=== PATIENT | female | born 1935 | race Caucasian/White ===

== ENCOUNTER → 2016-11-17 | Outpatient (CLI) | payer OTHER | LOC: FIMAGING 11:00 | PROVIDERS: ATTEND Internal Medicine | DX: Z12.31 Encounter for screening mammogram for malignant neoplasm of breast (principal); Z85.3 Personal history of malignant neoplasm of breast | CPT/HCPCS: G0202-52 ==

== ENCOUNTER → 2016-11-26 | Outpatient (CLI) | payer OTHER | LOC: FIMAGING 12:02 | PROVIDERS: ATTEND Internal Medicine | DX: R92.8 Other abnormal and inconclusive findings on diagnostic imaging of breast (principal) | CPT/HCPCS: 76641; G0206 ==

== ENCOUNTER → 2017-02-09 | Outpatient (CLI) | payer OTHER | LOC: FIMAGING 15:21 | PROVIDERS: ATTEND Internal Medicine | DX: J40 Bronchitis, not specified as acute or chronic (principal) ==

== ENCOUNTER → 2017-05-27 | Outpatient (CLI) | payer OTHER | LOC: FIMAGING 11:11 | PROVIDERS: ATTEND Internal Medicine | DX: Z03.89 Encounter for observation for other suspected diseases and conditions ruled out (principal); Z90.11 Acquired absence of right breast and nipple ==

== ENCOUNTER → 2018-01-21 | Outpatient (CLI) | payer OTHER ==
[~2018-01-21] MED LIST: GADOBUTROL 10 ML VIAL IVP ONE
== END ==
LOC: FIMAGING 15:00
PROVIDERS: ATTEND Internal Medicine
DX: R90.89 Other abnormal findings on diagnostic imaging of central nervous system (principal); Z85.3 Personal history of malignant neoplasm of breast
CPT/HCPCS: 70553; A9585

== ENCOUNTER → 2018-04-22 | Outpatient (CLI) | payer OTHER | LOC: FIMAGING 10:38 | PROVIDERS: ATTEND Internal Medicine | DX: M25.551 Pain in right hip (principal); M25.552 Pain in left hip; M54.5 Low back pain ==

== ENCOUNTER 2018-05-16 13:23 | Emergency (ER) | payer OTHER ==
--- NOTE | 2018-05-16 13:24 | EDPHY ---
H & P Time Seen by Provider: 05/16/18 13:25 Constitutional: Initial Vital Signs Temperature (C) 36.5 C 05/16/18 13:23 Heart Rate 80 05/16/18 13:23 Respiratory Rate 16 05/16/18 13:23 Blood Pressure 131/81 H 05/16/18 13:23 O2 Sat (%) 99 05/16/18 13:23 O2 Delivery Mode Room Air O2 (L/minute) 2 Allergies/Adverse Reactions: hydrocodone [Hydrocodone] Allergy (Unknown, Verified 05/16/18 13:39) Unknown clarithromycin [From Biaxin] Allergy (Verified 05/16/18 13:39) Sulfa (Sulfonamide Antibiotics) Allergy (Verified 05/16/18 13:39) Home Medications: Medication Instructions Recorded Aspirin 05/16/18 Ativan 05/16/18 Dexamethasone [Decadron 4 MG (*)] 4 mg PO DAILY #4 tab 05/16/18 Synthroid 05/16/18 Medical Decision Making - Diagnostics Imaging Results: Imaging Impressions Lumbar Spine MRI 05/16/18 14:14 Impression: 1. Prominent inferior endplate edema at L4, slightly greater than expected for degenerative change. Underlying nondisplaced compression fracture is difficult to exclude. 2. L4-L5: Severe left neural foraminal stenosis with possible compression of the exiting left L4 nerve root, with mild spinal canal narrowing and mild right neural foraminal stenosis. 3. L5-S1: Severe left neural foraminal stenosis and moderate right neural foraminal stenosis without significant spinal canal narrowing. 4. L2-L3: Moderate to severe right neural foraminal stenosis with mild spinal canal narrowing and mild left neural foraminal stenosis. 5. Please see above findings at specific disk levels. Findings discussed with Dr. Dillon Walter covering for Dr. Keith Johnson on May 16, 2018 at 1612 hours. ED Course/Re-evaluation: CHIEF COMPLAINT: Lower back pain HISTORY OF PRESENT ILLNESS: The patient is an 82 y/o female with a history of a a cortisone injection into the left hip 4 days ago, complaining of lower back pain. She has had left hip pain radiating into the front of her thigh off and on for several years. 4 days ago she had an injection into the left hip, though x-rays were not indicative of arthritis. This morning she began experiencing lower back pain which radiates into her thighs bilaterally. The pain is on both sides of her waist and is usually achy in quality but becomes sharp with movement. This morning, the pain prevented her from being able to walk upstairs. She has associated fatigue and headache. She denies changes in bowels and urination or any other associated symptoms. REVIEW OF SYSTEMS: A comprehensive 10 system review of systems is otherwise negative aside from elements mentioned in the history of present illness and medical decision making. PHYSICAL EXAM: HR, BP, O2 Sat, RR. Temp noted General Appearance: Alert, well hydrated, appropriate, and non-toxic appearing. Head: Atraumatic without scalp tenderness or obvious injury Eyes: Pupils equal, round, reactive to light and accommodation, EOMI, no trauma , no injection. Neck: Supple, nontender, no lymphadenopathy. Respiratory: No retractions, no distress, no wheezes, and no accessory muscle use. Lungs are clear to auscultation bilaterally. Cardiovascular: Regular rate and rhythm, no murmurs, rubs, or gallops. Good capillary refill all extremities. Gastrointestinal: Abdomen is soft, nontender, non-distended, no masses, no rebound, no guarding, no peritoneal signs. Musculoskeletal: Normal active ROM of all extremities, atraumatic. Neurological: Alert, appropriate, and interactive. Bilateral radiculopathy with left anterior tibialis giveaway. Skin: No rashes, good turgor, no nodules on palpation. Past medical history: Left hip injection Past surgical history: Denies Family history: Non-contributory Social history: Lives in [place], , retired, daughter and granddaughter at bedside DIAGNOSTICS/PROCEDURES/CRITICAL CARE TIME: DIFFERENTIAL DIAGNOSIS: The differential diagnosis for this patient's back pain included but was not limited to bulging disc, spinal stenosis, cauda equina syndrome, and soft tissue injury. MEDICAL DECISION MAKING: The patient presents with lower back pain, onset this morning. She has bilateral radiculopathy and anterior tibialis giveaway. Plan for spinal MRI. (Keith Johnson) MRI results called to me by Dr. Moore. This shows extensive degenerative disc disease. Additionally at left-sided L4 through S1 severe Neuramen Stenosis. As well as right-sided L2-L3. Additionally at L4 no no significant compression fracture or height loss and no evidence of diskitis however could be a small fracture. Please see full dictation for details. 1709: I spoke with Neurosurgery Dr. Wood Menon. Discussed case in detail an MRI results. Does not recommend back brace less she continues have bad pain. Additionally follow up with primary care doctor. Will give a Decadron prescription. Return precautions discussed. Additionally recommend following up with patient's primary care doctor Follow up with Neurosurgery and primary care doctor. Patient is comfortable with ambulatory around the emergency room at 5:11 p.m.. Ambulated well. Pain well controlled. No signs of cauda equina on exam MRI discussed in detail with the patient and family at bedside. I did offer the patient limited supply of narcotic pain medicine however she is decline. Pain-free at this time much improved after IV Dilaudid earlier in the ER. (Dillon Walter) - Data Points Medications Given: Discontinued Medications Hydromorphone HCl (Dilaudid) 0.5 mg IVP EDNOW ONE Stop: 05/16/18 13:51 Last Admin: 05/16/18 14:07 Dose: 0.5 mg Ketorolac Tromethamine (Toradol) 30 mg IVP EDNOW ONE Stop: 05/16/18 13:51 Last Admin: 05/16/18 14:06 Dose: 30 mg Ondansetron HCl (Zofran) 4 mg IVP EDNOW ONE Stop: 05/16/18 13:51 Last Admin: 05/16/18 14:05 Dose: 4 mg Departure - Departure Disposition: Home, Routine, Self-Care Clinical Impression: Back pain Condition: Good Instructions: Back Pain (ED) Additional Instructions: 1. Follow up with her primary care doctor 2. Return emergency room if you have worsening pain 3. Neurosurgery referral as needed 4. Decadron. 5. Return if worse. Referrals: Patient,NotPresent [Unknown] - As per Instructions Rajat Menon MD [Medical Doctor] - As per Instructions Prescriptions: Dexamethasone [Decadron 4 MG (*)] 4 mg PO DAILY #4 tab Report Scribed for: Keith Johnson Report Scribed by: Mervat Nichols Date of Report: 05/16/18 Time of Report: 13:57
[2018-05-16] MEDS ORDERED: HYDROmorphONE/DILAUDID 2 MG/ML INJ IVP ONE (13:50)
[2018-05-16] MEDS ORDERED: KETOROLAC 30 MG/1 ML SDV IVP ONE (13:50)
[2018-05-16] MEDS ORDERED: ONDANSETRON 4 MG/2 ML VIAL IVP ONE (13:50)
[2018-05-16 17:51] VITALS: BP 132/78
== END 2018-05-16 17:51 | disposition home or self-care (01) ==
LOC: EDUNIT#
DX: M54.5 Low back pain (principal)
CPT/HCPCS: 72148; 96374; 96375; 99285; J1170; J1885; J2405

== ENCOUNTER 2018-05-20 22:25 | Inpatient (IN) | payer OTHER ==
--- NOTE | 2018-05-20 22:47 | EDPHY ---
H & P Time Seen by Provider: 05/20/18 22:45 HPI/ROS: Chief Complaint: Back pain, confusion HPI: 82-year-old woman presenting with worsening back pain. She was seen in the emergency department 4 days ago with severe left lower back pain. She had an MRI at that time which showed L4 to S once left-sided stenosis and a possible nondisplaced fracture. She was sent home on nonnarcotic analgesia. Her called EMS tonight because she was complaining of worsening pain and was not wanting to get up from the floor. She did not fall. She had slid herself down a perform exercises. Her granddaughter also notice that she is increasingly slowed at answer and not seem to be acting herself today. She is normally awake and alert. Patient's states that she tends to become withdrawn when she is in pain. EMS did give her fentanyl. She is also complaining of having difficulty in the urge to urinate. No history of urinary retention in the past. ROS: 10 systems were reviewed and were negative except those elements noted in the HPI. Social History: No smoking, no alcohol, no recreational drug use Family History: non-contributory Physical Exam: Gen: Awake, Alert, No Distress HEENT: Nose: no rhinorrhea Eyes: PERRLA, EOMI Mouth: Moist mucosa Neck: Supple, no JVD Chest: nontender, lungs clear to auscultation Heart: S1, S2 normal, no murmur Abd: Soft, non-tender, no guarding Back: no CVA tenderness, no midline tenderness Ext: no edema, non-tender Skin: no rash Neuro: CN II-XII intact, Sensation grossly intact, Strength 5/5 in bilateral upper and lower extremities, she has normal dorsal and plantar flexion bilaterally. Sensations intact in all dermatomes. 2+ deep tendon reflexes bilateral patellar tendons. - Personal History Tetanus Vaccine Date: 2010 - Medical/Surgical History Hx Asthma: No Hx Chronic Respiratory Disease: No Hx Diabetes: Yes Hx Cardiac Disease: No Hx Renal Disease: No Hx Cirrhosis: No Hx Alcoholism: No Hx HIV/AIDS: No Hx Splenectomy or Spleen Trauma: No Other PMH: HRT, hypothyroid, anxiety - Social History Smoking Status: Former smoker Constitutional: Initial Vital Signs Temperature (C) 38.2 C 05/20/18 22:41 Heart Rate 98 05/20/18 22:41 Respiratory Rate 18 05/20/18 22:41 Blood Pressure 151/67 H 05/20/18 22:41 O2 Sat (%) 92 05/20/18 22:41 O2 Delivery Mode Room Air Allergies/Adverse Reactions: hydrocodone [Hydrocodone] Allergy (Unknown, Verified 05/16/18 13:39) Unknown clarithromycin [From Biaxin] Allergy (Verified 05/16/18 13:39) Sulfa (Sulfonamide Antibiotics) Allergy (Verified 05/16/18 13:39) Home Medications: Medication Instructions Recorded Acetaminophen [Tylenol 8 Hour] 650 mg PO 05/21/18 Aspirin EC [Aspirin EC 81 mg (*)] 05/21/18 Dexamethasone [Dexamethasone] 4 mg PO DAILY 05/21/18 Ibuprofen 200 mg PO 05/21/18 Isomethept/Dichlphn/Acetaminop 2 cap PO PRN PRN MDD 4 05/21/18 [Ihtpqwttas-Rbwnjkzojq-Spxtidww] LORazepam [Lorazepam] 0.5 mg PO PRN PRN MDD 1MG 05/21/18 Levothyroxine Sodium 50 mcg PO DAILY 05/21/18 [Levothyroxine Sodium] Melatonin [Melatonin 3 MG (*)] 05/21/18 Montelukast Sodium [Singulair 10 10 mg PO HS 05/21/18 mg (*)] Naproxen Sodium [Aleve 220 MG (*)] 05/21/18 Nortriptyline HCl 40 - 50 mg PO HS 05/21/18 Medical Decision Making - Diagnostics Imaging Results: Imaging Impressions Chest X-Ray 05/20/18 22:40 Impression: No acute abnormality, or significant interval change since previous exams. ED Course/Re-evaluation: Patient mildly altered. She is oriented x3 but is slow to respond. This could be secondary to medications by EMS. She is also febrile to 38.2. Will perform infectious workup re-evaluate. She is neurologically intact. No findings consistent with cauda equina. 82-year-old with back pain, fever. She does have a leukocytosis of 22, however she is on Decadron for her back pain and lumbar stenosis. She has not have any source of infection at this time including a normal urinalysis, negative chest x -ray and negative influenza. She does have some hyponatremia and is clinically dehydrated. I have given her IV fluids here. She has continued to complain of lumbar pain. Plan will be to admit for continued hydration, analgesia and to follow her temperature to rule out focal source of infection. I have paged the hospitalist. - Data Points Laboratory Results: Laboratory Results 05/20/18 22:45 05/20/18 22:45 05/20/18 05/20/18 05/20/18 23:15 23:15 22:45 WBC RBC Hgb Hct MCV MCH MCHC RDW Plt Count MPV Neut % (Auto) Lymph % (Auto) [place] % (Auto) Eos % (Auto) Baso % (Auto) Nucleat RBC Rel Count Absolute Neuts (auto) Absolute Lymphs (auto) Absolute Monos (auto) Absolute Eos (auto) Absolute Basos (auto) Absolute Nucleated RBC Immature Gran % Seg Neutrophils % Band Neutrophils % Lymphocytes % Monocytes % Eosinophils % Basophils % Metamyelocytes % Myelocytes % Promyelocytes % Blast Cells % Immature Gran # Absolute Seg Neuts Absolute Band Neuts Absolute Lymphocytes Absolute Monocytes Absolute Eosinophils Absolute Basophils Absolute Metamyelocyte Absolute Myelocytes Absolute Promyelocytes Absolute Plasma Cells Nucleated RBCs Absolute Blast Cells Plasma Cells % Platelet Estimate Sodium Potassium Chloride Carbon Dioxide Anion Gap BUN Creatinine Estimated GFR Glucose Serum Osmolality 263 mosmo/kg L mosmo/kg (280-297) Calcium TSH 2.760 uIU/mL uIU/mL (0.465-4.680) Urine Color YELLOW Urine Appearance CLEAR Urine pH 5.0 (5.0-7.5) Ur Specific [place] 1.018 (1.002-1.030) Urine Protein NEGATIVE (NEGATIVE) Urine Ketones TRACE H (NEGATIVE) Urine Blood 1+ H (NEGATIVE) Urine Nitrate NEGATIVE (NEGATIVE) Urine Bilirubin NEGATIVE (NEGATIVE) Urine Urobilinogen NEGATIVE EU EU (0.2-1.0) Ur Leukocyte Esterase NEGATIVE (NEGATIVE) Urine RBC 5-10 /hpf H /hpf (0-3) Urine WBC 3-5 /hpf H /hpf (0-3) Ur Epithelial Cells NONE SEEN /lpf /lpf (NONE-1+) Hyaline Casts 1-5 /lpf /lpf (0-1) Urine Mucus TRACE /lpf /lpf (NONE-1+) Ur Random Sodium 114 mEq/L H mEq/L (30-90) Urine Glucose NEGATIVE (NEGATIVE) Nasal Influenza A PCR Nasal Influenza B PCR 0105/20/18 05/20/18 22:45 22:45 22:45 WBC 21.91 10^3/uL H 10^3/uL (3.80-9.50) RBC 3.93 10^6/uL L 10^6/uL (4.18-5.33) Hgb 12.7 g/dL g/dL (12.6-16.3) Hct 35.9 % L % (38.0-47.0) MCV 91.3 fL fL (81.5-99.8) MCH 32.3 pg pg (27.9-34.1) MCHC 35.4 g/dL g/dL (32.4-36.7) RDW 12.5 % % (11.5-15.2) Plt Count 283 10^3/uL 10^3/uL (150-400) MPV 9.3 fL fL (8.7-11.7) Neut % (Auto) Not Reported Lymph % (Auto) Not Reported [place] % (Auto) Not Reported Eos % (Auto) Not Reported Baso % (Auto) Not Reported Nucleat RBC Rel Count Not Reported Absolute Neuts (auto) Not Reported Absolute Lymphs (auto) Not Reported Absolute Monos (auto) Not Reported Absolute Eos (auto) Not Reported Absolute Basos (auto) Not Reported Absolute Nucleated RBC Not Reported Immature Gran % Not Reported Seg Neutrophils % 90.0 % % Band Neutrophils % 0.0 % % Lymphocytes % 1.0 % % Monocytes % 9.0 % % Eosinophils % 0.0 % % Basophils % 0.0 % % Metamyelocytes % 0.0 % % Myelocytes % 0.0 % % Promyelocytes % 0.0 % % Blast Cells % 0.0 % % Immature Gran # Not Reported Absolute Seg Neuts 19.72 10^3/uL H 10^3/uL (1.70-6.50) Absolute Band Neuts 0.00 10^3/uL 10^3/uL (0.00-0.70) Absolute Lymphocytes 0.22 10^3/uL L 10^3/uL (1.00-3.00) Absolute Monocytes 1.97 10^3/uL H 10^3/uL (0.30-0.80) Absolute Eosinophils 0.00 10^3/uL L 10^3/uL (0.03-0.40) Absolute Basophils 0.00 10^3/uL L 10^3/uL (0.02-0.10) Absolute Metamyelocyte 0.00 10^3/mL 10^3/mL (0.00-0.00) Absolute Myelocytes 0.00 10^3/mL 10^3/mL (0.00-0.00) Absolute Promyelocytes 0.00 10^3/uL 10^3/uL (0.00-0.00) Absolute Plasma Cells 0.00 10^3/uL 10^3/uL (0.00-0.00) Nucleated RBCs 0 /100 WBC /100 WBC (0-0) Absolute Blast Cells 0.00 10^3/uL 10^3/uL (0.00-0.00) Plasma Cells % 0.0 % % Platelet Estimate ADEQUATE (ADEQ) Sodium 125 mEq/L L mEq/L (135-145) Potassium 4.5 mEq/L mEq/L (3.5-5.2) Chloride 96 mEq/L L mEq/L (97-110) Carbon Dioxide 21 mEq/l L mEq/l (22-31) Anion Gap 8 mEq/L mEq/L (6-14) BUN 21 mg/dL mg/dL (7-23) Creatinine 1.0 mg/dL mg/dL (0.6-1.0) Estimated GFR 53 Glucose 105 mg/dL H mg/dL (70-100) Serum Osmolality Calcium 8.5 mg/dL mg/dL (8.5-10.4) TSH Urine Color Urine Appearance Urine pH Ur Specific [place] Urine Protein Urine Ketones Urine Blood Urine Nitrate Urine Bilirubin Urine Urobilinogen Ur Leukocyte Esterase Urine RBC Urine WBC Ur Epithelial Cells Hyaline Casts Urine Mucus Ur Random Sodium Urine Glucose Nasal Influenza A PCR NEGATIVE FOR FLU A (NEGATIVE) Nasal Influenza B PCR NEGATIVE FOR FLU B (NEGATIVE) Medications Given: Acetaminophen (Tylenol) 1,000 mg PO Q8H TRACY Stop: 11/17/18 00:44 Last Admin: 05/21/18 01:05 Dose: 1,000 mg Discontinued Medications Sodium Chloride (Ns) 1,000 mls @ 0 mls/hr IV ONCE ONE; Wide Open PRN Reason: Protocol Stop: 05/20/18 23:15 Last Admin: 05/20/18 23:24 Dose: 1,000 mls Ketorolac Tromethamine (Toradol) 15 mg IVP ONCE ONE Stop: 05/21/18 00:19 Last Admin: 05/21/18 00:34 Dose: 15 mg Levothyroxine Sodium (Synthroid) 50 mcg PO DAILY AT 6AM ONE Stop: 05/21/18 06:01 Last Admin: 05/21/18 05:05 Dose: 50 mcg Lorazepam (Ativan) 0.5 mg PO ONCE ONE Stop: 05/21/18 01:38 Last Admin: 05/21/18 02:09 Dose: 0.25 mg Departure - Departure Disposition: [facility] Clinical Impression: Fever, Back pain, Dehydration Condition: Fair
[2018-05-20 22:59] LABS: PLATELET COUNT 283 10^3/uL (150-400)
[2018-05-20] MEDS ORDERED: NS 1,000 ML IV ONE (23:14)
[2018-05-20] MEDS ORDERED: ACETAMINOPHEN 325 MG TAB PO PRN (23:53)
[2018-05-20] MEDS ORDERED: ONDANSETRON DISINTEGRATING 4 MG TAB PO PRN (23:53)
[2018-05-20] MEDS ORDERED: ONDANSETRON 4 MG/2 ML VIAL IVP PRN (23:53)
[2018-05-21] MEDS ORDERED: KETOROLAC 15 MG/1 ML SDV IVP ONE (00:18)
[2018-05-21] MEDS ORDERED: KETOROLAC 15 MG/1 ML SDV ONE (00:31)
--- NOTE | 2018-05-21 00:33 | PDGENHP ---
History and Physical - Chief Complaint Back pain - History of Present Illness 82 yo F w/ hx of anxiety, breast CA, and hypothyroid presents with back pain. The patient tells me she has been experiencing lower back pain for several months. This has been worse since last week. She presented to our ED on 05/16 and underwent an L-spine MRI. this demonstrated endplate edema at L4 and significant DJD but no acutely concerning findings. She was discharged home with dexamethasone. She thinks this may have provided mild improvement but her pain again became severe today. She fell off the couch and could not get back up so she was brought to the ED for evaluation. Her pain is lower back with L sided radiation to her weinstein. She denies significant leg weakness, numbness, or loss of bowel or bladder control. In the ED she was noted to be febrile. She denies being aware of this and also denies all symptoms of infection and sick contacts. CXR, UA, and flu are negative in the ED. Case discussed with ED physician Dr. Henderson; records reviewed and summarized above. History Information - Allergies/Home Medication List Allergies/Adverse Reactions: hydrocodone [Hydrocodone] Allergy (Unknown, Verified 05/16/18 13:39) Unknown clarithromycin [From Biaxin] Allergy (Verified 05/16/18 13:39) Sulfa (Sulfonamide Antibiotics) Allergy (Verified 05/16/18 13:39) Home Medications: Aspirin 05/16/18 [Last Taken Unknown] Ativan 05/16/18 [Last Taken Unknown] Synthroid 05/16/18 [Last Taken Unknown] I have personally reviewed and updated: family history, medical history - Past Medical History cancer Additional medical history: Hypothyroid. SIADH - Surgical History Reports: mastectomy - Family History Positive for: cancer, CAD - Social History Smoking Status: Former smoker Review of Systems Review of Systems: ROS: 10pt was reviewed & negative except for what was stated in HPI & below Physical Exam Physical Exam: Temp Pulse Resp BP Pulse Ox 37.7 C 93 20 132/54 H 97 05/21/18 00:25 05/21/18 00:25 05/21/18 00:25 05/21/18 00:25 05/21/18 00:25 Constitutional: appears nourished, uncomfortable Eyes: PERRL, EOMI Ears, Nose, Mouth, Throat: no oral mucosal ulcers, dry mucous membranes Cardiovascular: regular rate and rhythym, systolic murmur Respiratory: no respiratory distress, clear to auscultation Gastrointestinal: normoactive bowel sounds, soft, non-tender abdomen Skin: warm, normal color Musculoskeletal: full muscle strength, no joint effusions Neurologic: AAOx3, CN II-XII Intact Psychiatric: interacting appropriately, not anxious Lab Data & Imaging Review 05/20/18 22:45 05/20/18 22:45 WBC 21.91 10^3/uL (3.80-9.50) H 05/20/18 22:45 RBC 3.93 10^6/uL (4.18-5.33) L 05/20/18 22:45 Hgb 12.7 g/dL (12.6-16.3) 05/20/18 22:45 Hct 35.9 % (38.0-47.0) L 05/20/18 22:45 MCV 91.3 fL (81.5-99.8) 05/20/18 22:45 MCH 32.3 pg (27.9-34.1) 05/20/18 22:45 MCHC 35.4 g/dL (32.4-36.7) 05/20/18 22:45 RDW 12.5 % (11.5-15.2) 05/20/18 22:45 Plt Count 283 10^3/uL (150-400) 05/20/18 22:45 MPV 9.3 fL (8.7-11.7) 05/20/18 22:45 Neut % (Auto) Not Reported 05/20/18 22:45 Lymph % (Auto) Not Reported 05/20/18 22:45 [place] % (Auto) Not Reported 05/20/18 22:45 Eos % (Auto) Not Reported 05/20/18 22:45 Baso % (Auto) Not Reported 05/20/18 22:45 Nucleat RBC Rel Count Not Reported 05/20/18 22:45 Absolute Neuts (auto) Not Reported 05/20/18 22:45 Absolute Lymphs (auto) Not Reported 05/20/18 22:45 Absolute Monos (auto) Not Reported 05/20/18 22:45 Absolute Eos (auto) Not Reported 05/20/18 22:45 Absolute Basos (auto) Not Reported 05/20/18 22:45 Absolute Nucleated RBC Not Reported 05/20/18 22:45 Immature Gran % Not Reported 05/20/18 22:45 Seg Neutrophils % 90.0 % 05/20/18 22:45 Band Neutrophils % 0.0 % 05/20/18 22:45 Lymphocytes % 1.0 % 05/20/18 22:45 Monocytes % 9.0 % 05/20/18 22:45 Eosinophils % 0.0 % 05/20/18 22:45 Basophils % 0.0 % 05/20/18 22:45 Metamyelocytes % 0.0 % 05/20/18 22:45 Myelocytes % 0.0 % 05/20/18 22:45 Promyelocytes % 0.0 % 05/20/18 22:45 Blast Cells % 0.0 % 05/20/18 22:45 Immature Gran # Not Reported 05/20/18 22:45 Absolute Seg Neuts 19.72 10^3/uL (1.70-6.50) H 05/20/18 22:45 Absolute Band Neuts 0.00 10^3/uL (0.00-0.70) 05/20/18 22:45 Absolute Lymphocytes 0.22 10^3/uL (1.00-3.00) L 05/20/18 22:45 Absolute Monocytes 1.97 10^3/uL (0.30-0.80) H 05/20/18 22:45 Absolute Eosinophils 0.00 10^3/uL (0.03-0.40) L 05/20/18 22:45 Absolute Basophils 0.00 10^3/uL (0.02-0.10) L 05/20/18 22:45 Absolute Metamyelocyte 0.00 10^3/mL (0.00-0.00) 05/20/18 22:45 Absolute Myelocytes 0.00 10^3/mL (0.00-0.00) 05/20/18 22:45 Absolute Promyelocytes 0.00 10^3/uL (0.00-0.00) 05/20/18 22:45 Absolute Plasma Cells 0.00 10^3/uL (0.00-0.00) 05/20/18 22:45 Nucleated RBCs 0 /100 WBC (0-0) 05/20/18 22:45 Absolute Blast Cells 0.00 10^3/uL (0.00-0.00) 05/20/18 22:45 Plasma Cells % 0.0 % 05/20/18 22:45 Platelet Estimate ADEQUATE (ADEQ) 05/20/18 22:45 Sodium 125 mEq/L (135-145) L 05/20/18 22:45 Potassium 4.5 mEq/L (3.5-5.2) 05/20/18 22:45 Chloride 96 mEq/L (97-110) L 05/20/18 22:45 Carbon Dioxide 21 mEq/l (22-31) L 05/20/18 22:45 Anion Gap 8 mEq/L (6-14) 05/20/18 22:45 BUN 21 mg/dL (7-23) 05/20/18 22:45 Creatinine 1.0 mg/dL (0.6-1.0) 05/20/18 22:45 Estimated GFR 53 05/20/18 22:45 Glucose 105 mg/dL (70-100) H 05/20/18 22:45 Calcium 8.5 mg/dL (8.5-10.4) 05/20/18 22:45 Urine Color YELLOW 05/20/18 23:15 Urine Appearance CLEAR 05/20/18 23:15 Urine pH 5.0 (5.0-7.5) 05/20/18 23:15 Ur Specific [place] 1.018 (1.002-1.030) 05/20/18 23:15 Urine Protein NEGATIVE (NEGATIVE) 05/20/18 23:15 Urine Ketones TRACE (NEGATIVE) H 05/20/18 23:15 Urine Blood 1+ (NEGATIVE) H 05/20/18 23:15 Urine Nitrate NEGATIVE (NEGATIVE) 05/20/18 23:15 Urine Bilirubin NEGATIVE (NEGATIVE) 05/20/18 23:15 Urine Urobilinogen NEGATIVE EU (0.2-1.0) 05/20/18 23:15 Ur Leukocyte Esterase NEGATIVE (NEGATIVE) 05/20/18 23:15 Urine RBC 5-10 /hpf (0-3) H 05/20/18 23:15 Urine WBC 3-5 /hpf (0-3) H 05/20/18 23:15 Ur Epithelial Cells NONE SEEN /lpf (NONE-1+) 05/20/18 23:15 Hyaline Casts 1-5 /lpf (0-1) 05/20/18 23:15 Urine Mucus TRACE /lpf (NONE-1+) 05/20/18 23:15 Urine Glucose NEGATIVE (NEGATIVE) 05/20/18 23:15 Nasal Influenza A PCR NEGATIVE FOR FLU A (NEGATIVE) 05/20/18 22:45 Nasal Influenza B PCR NEGATIVE FOR FLU B (NEGATIVE) 05/20/18 22:45 Imaging Review: Imaging Impressions Chest X-Ray 05/20/18 22:40 Impression: No acute abnormality, or significant interval change since previous exams. Assessment & Plan Assessment: 82 yo F w/ hx of hypothyroid, breast CA, and SIADH presents with back pain and fever. Plan: 1. Acute on chronic back pain - L-spine MRI performed on 05/16 revealed L4 endplate edema and significant lumbar DJD. Per radiology an underlying compression fracture at L4 was difficult to rule out. She presents today with ongoing pain that is similar in nature to her last presentation. She denies red flag symptoms. - Admit for observation - Toradol 15 mg IV x1 now - Will schedule APAP 1g q8h - Oxycodone PRN for breakthrough pain - PT/OT evaluations - May need repeat imaging if not improving with conservative measures 2. Fever - Tmax of 38.2 noted in the ED; patient is asymptomatic. A leukocytosis is also present but this is in the setting of steroid use. She denies infectious symptoms. CXR, UA, and flu are negative. - Observe off of antibiotics - Check procalcitonin - Blood cultures ordered 3. Leukocytosis - Likely related to recent steroid course but infection also a possibility. - Monitor CBC - Infectious work-up as above 4. Hyponatremia - With prior hx of SIADH; this may be worsened today (Na 125 on admission) due to pain and dehydration. - S/p 1 L NS in ED - Hold further fluids and repeat BMP in the morning - Will check TSH, Osms and Pat 5. Hypothyroid - Check TSH, continue LTX. Diet - Regular Code - Full Ppx - LMWH, low dose Dispo - Admit under observation status
[2018-05-21] MEDS: ACETAMINOPHEN 500 MG TAB PO SCH ×4 (01:05→22:41)
[2018-05-21] MEDS ORDERED: LORazepam 0.5 MG TAB PO ONE (01:37)
[2018-05-21 05:52] LABS: PLATELET COUNT 257 10^3/uL (150-400)
[2018-05-21] MEDS ORDERED: LEVOTHYROXINE 50 MCG TAB PO ONE (06:00)
--- NOTE | 2018-05-21 08:12 | HOSPPROG ---
Hospitalist Progress Note Assessment/Plan: # low back pain - concerning given fevers and L4 endplate edema on MRI - repeat MRI w/wo today stat - Dr Patel consulted # fever - concerning for spinal source, no other clear source - follow BCx - hold on empiric abx - add esr/crp # leukocytosis - was on steroids, but more elevated than would be expected - w/u as above for fever # hypoNa - worse with IVF - suspect SIADH - agree with fluid restriction - Uosms pending # hypothyroid - cont synthroid # dvt ppx - hold lmwh until after MRI # FCFT # dispo - inpt; needs ongoing monitoring for fever and low back pain Subjective: cc back pain; back pain better, she thisnk since she got to the ED ; she received toradol; still has L leg pain below the knee; no fevers overnight; no cough, runny nose, sore throat, rash Objective: Vital Signs Temp Pulse Resp BP Pulse Ox 37.0 C 79 16 106/57 L 94 05/21/18 04:00 05/21/18 04:00 05/21/18 04:00 05/21/18 04:00 05/21/18 04:00 Laboratory Results 05/21/18 04:46 05/21/18 04:46 05/20/18 05/21/18 05/22/18 05:59 05:59 05:59 Intake Total 1250 Balance 1250 chart reviewed MRI reviewed discussed with dr patel - Physical Exam Constitutional: uncomfortable Cardiovascular: regular rate and rhythym, no murmur, rub, or gallop Respiratory: no respiratory distress, no rales or rhonchi, clear to auscultation Gastrointestinal: normoactive bowel sounds, soft, non-tender abdomen, no palpable masses Neurologic: AAOx3, sensation intact bilaterally, other (L leg weak, she relates to L hip pain; no TTP over vertebral bodies) ICD10 Worksheet Patient Problems: Problems Problem Status Onset Back pain Acute Dehydration Acute Fever Acute
[2018-05-21] MEDS ORDERED: ENOXAPARIN 30 MG/0.3 ML SYR SC SCH (09:00)
[2018-05-21] MEDS ORDERED: GADOBUTROL 10 ML VIAL IVP ONE (09:03)
--- NOTE | 2018-05-21 09:40 | PDMN ---
Medical Necessity Medical necessity: Change to inpt as of 05/21/18 @ 08:04 per MD order and MCG M- 63, Back Pain, A-1 days. 82 y/o w/severe lower back pain w/L sided radiation to weinstein and fever (concerning for spinal source). L-spine revealed L4 endplate edema and significant lumbar DJD, repeat MRI today, neurosurg consult pending. Leukocytosis WBC's 20, hyponatremia: Na 125 last night to 123 today despite IVF , suspect SIADH, hypocalcemia 7.6, T max in night 100.9. Est LOS>2MN for ongoing eval/management of above.
--- NOTE | 2018-05-21 10:15 | GCON ---
I just dictated a consultation on her with a cosigner of Dr. Nadja Laboy; however, I do want that ch anged to Dr. Jason Patel, Neurosurgery. Thank you. /[id number]/MODL
[2018-05-21 11:33] LABS: INR 1.11 (0.83-1.16); PROTIME(PATIENT) 14.5 SEC (12.0-15.0)
[2018-05-21] MEDS ORDERED: MIDAZOLAM 2 MG/2 ML VIAL IVP PRN (11:41)
[2018-05-21] MEDS ORDERED: fentaNYL 100 MCG/2 ML INJ IVP PRN (11:41)
[2018-05-21] MEDS ORDERED: NALOXONE HCL 0.4 MG/ML INJ IVP PRN (11:41)
[2018-05-21] MEDS ORDERED: FLUMAZENIL 0.5 MG/5 ML MDV IVP PRN (11:41)
[2018-05-21] MEDS ORDERED: NS 1,000 ML IV SCH (11:45)
[2018-05-21] MEDS: oxyCODONE IR 5 MG TAB PO PRN ×2 (11:55→20:52)
--- NOTE | 2018-05-21 12:54 | ASMTCMCOM ---
ROGER Note CM Note Notes: Pt admitted for lower back pain, and MRI revealed that she had a small epidural abscess. She will have it aspirated today, PT/OT to ROGER rahman w/vlad. Pt lives at home with her and is normally independent. DC Plan: TBD Date Signed: 05/21/2018 12:54 PM Electronically Signed By:Jeanne Guy RN
[2018-05-21] MEDS ORDERED: NALOXONE HCL 0.4 MG/ML INJ ONE (14:25)
[2018-05-21] MEDS ORDERED: FLUMAZENIL 0.5 MG/5 ML MDV IVP ONE (14:26)
[2018-05-21] MEDS ORDERED: MIDAZOLAM 2 MG/2 ML VIAL ONE (14:26)
[2018-05-21] MEDS ORDERED: fentaNYL 100 MCG/2 ML INJ ONE (14:26)
--- NOTE | 2018-05-21 14:32 | PDCONSULT ---
Sign Builder Supervisor Note: Infectious Diseases Consult Note Impression: 1. L4-L5 osteo diskitis with epidural abscess. Etiology not clear, blood cultures negative at less than 24 hr of incubation, and no external site of inoculation to the spine. Hemodynamically stable with no ongoing fevers, hold antibiotics pending IR biopsy and aspiration from microbiology. Discussed with IR, pathology, and microbiology lab holding a pathology specimen in saline for PCR sent out if cultures negative. Differential diagnosis does include tuberculous osteo diskitis with exposure to an active case in the 1950s, she was told she would always have a positive tuberculosis test and has never received treatment for latent or active tuberculosis. Plan: 1. Hold antibiotics 2. Follow-up blood cultures 3. IR for bone biopsy, intervertebral disc biopsy, and/or epidural abscess aspiration 4. Ceftriaxone and daptomycin if fevers, tachycardia, or hypotension develop Anthony Nixon MD Infectious Diseases Chief Complaint: Severe back pain Requesting Provider: Dr. Hutton Reason for Referral: Consultation was requested by Dr. Hutton regarding antimicrobial management. HPI: The patient is an 82-year-old woman who presented with this severe onset of lower back pain and a fall at home. She notes being in her usual state of good health extending back to 6 months prior to this admission, when she 1st experienced left hip pain with progressive worsening and radiation down the left leg. She did not develop low back pain until 05/16/2018. She reports no fevers, chills, or night sweats over the past 6 months. She had a steroid injection into the left hip approximately 3 weeks prior to this admission with minimal improvement in the hip pain. She reports on the the acute onset of severe lower back pain preventing her from doing her daily activities. She notes no urinary incontinence no fecal incontinence. In spite of left lower extremity radiculopathy she reports no weakness, numbness, or tingling of her lower extremities. She does note that she has had changes in her urination, but this is limited to delayed sensation and urgency when the sensation of urination develops. Travel history: Travel to [facility] approximately 1 year prior to admission, time spent with [place] the [place] and in the [place] with sometimes and a bird sanctuary. She did not come into contact with any birds or other wild life while in [facility]. She spent a week in [facility] [place] approximately 2 weeks prior to admission. She has remote history of extensive travel to [place], [place], she has lived in [place] where she had personal contacts within known active tuberculosis patient. She has lived in [place] in the remote past. Past Medical History: Right-sided breast cancer, hypothyroidism, SIADH Past Surgical History: Right-sided mastectomy Social History: Remote history of cigarette smoking, social alcohol use, no drug use started Family History: No serious infections Allergies: Sulfa, clarithromycin, hydrocodone Medications: Reviewed in medical record and confirmed with patient. ROS: 10 organ systems reviewed; pertinent positives and negatives listed in the HPI, all other organ systems negative. Physical Exam: VS: Reviewed Gen: No acute distress; Breathing comfortably without exogenous oxygen; Able to speak in complete sentences Eyes: No conjunctival injection; No scleral icterus HENT: No gross deformities Neck: No limitation in range of motion Pulm: Breath sounds clear to the bases bilaterally; No wheeze, rhonchi, or rales CV: Normal S1 and S2; Regular rate and rhythm; No murmurs, rubs, or gallops; No lower extremity edema Abd: Not distended; Normo-active bowel sounds; Soft; Non-tender Skin: A full skin exam including bilateral upper extremities, bilateral lower extremities to the knees, face, neck, abdomen, chest, and back performed; Skin intact, warm, with no rash MSK: Joints without erythema or edema; No gross limitation in range of motion; palpation down the spine reveals tenderness over the lumbar spine, no paraspinal tenderness throughout Ext: No clubbing or cyanosis Neuro: Awake and alert Psych: Normal mood and blunted affect Labs/Imaging: All microbiology testing (culture and non-culture) reviewed in the medical record. Personally reviewed and interpreted the images of the following radiographs: Chest x-ray showing no infiltrates or other abnormalities. Microbiology 05/21/18 00:27 Blood Blood Culture - Preliminary 05/21/18 00:27 Blood Gram Positive Cocci Chains Laboratory Tests 05/20/18 05/20/18 05/21/18 22:45 22:45 04:46 WBC 21.91 H 20.24 H Hgb 12.7 11.0 L Plt Count 283 257 Absolute Seg Neuts 19.72 H 18.78 H Absolute Band Neuts 0.00 0.00 Absolute Lymphocytes 0.22 L 0.83 L Creatinine 1.0 C-Reactive Protein 01/18/19 01/18/19 04:46 04:46 WBC Hgb Plt Count Absolute Seg Neuts Absolute Band Neuts Absolute Lymphocytes Creatinine 0.9 C-Reactive Protein 191.7 H Ongoing monitoring for antimicrobial toxicity with: CBC, BMP.
[2018-05-21] MEDS ORDERED: AMPICILLIN SODIUM 2 GM in NS 100 ML IV SCH (15:15)
[2018-05-21] MEDS ORDERED: LORazepam 0.5 MG TAB PO PRN (16:02)
[2018-05-21] MEDS ORDERED: MELATONIN 3 MG TAB PO PRN (16:02)
[2018-05-21] MEDS ORDERED: ACETAMINOPHEN 500 MG TAB PO PRN (16:04)
[2018-05-22] MEDS: LEVOTHYROXINE 50 MCG TAB PO SCH (04:42)
[2018-05-22] MEDS: oxyCODONE IR 5 MG TAB PO PRN ×3 (04:42→19:55)
[2018-05-22 05:43] LABS: PLATELET COUNT 255 10^3/uL (150-400)
[2018-05-22] MEDS: ACETAMINOPHEN 500 MG TAB PO SCH ×2 (09:38→15:44)
--- NOTE | 2018-05-22 10:59 | PCMIDPN ---
Assessment/Plan: # Streptococcal bacteremia and L4-L5 osteo diskitis, L Psoas early abscess with early epidural abscess --continue IV ceftriaxone 2gm --await ID or streptococcus --CT abd/pelvis to look for source --surface ECHO --repeat blood cx tomorrow --baseline LFTs w ceftriaxone --neurosurg deferring surgery currently, will continue to monitor neuro exam Meds Ceftriaxone 2gm IV daily #2 Subjective: Patient with minimal complaints. States her back pain is under control, denies lower extremity weakness, abdominal pain, dental pain, rash Objective: Vital Signs Temp Pulse Resp BP Pulse Ox 37.0 C 95 18 153/72 H 95 05/22/18 07:56 05/22/18 07:56 05/22/18 07:56 05/22/18 07:56 05/22/18 07:56 Laboratory Results 05/22/18 04:51 05/22/18 05:52 05/21/18 05/22/18 05/23/18 05:59 05:59 05:59 Intake Total 600 Balance 600 ESR 10 MM/HR (0-30) 05/21/18 16:00 C-Reactive Protein 191.7 mg/L (<10.0) H 05/21/18 04:46 - Physical Exam General Appearance: alert, no apparent distress, thin, non-toxic EENT: other (Good dentition), No thrush Respiratory: lungs clear, No accessory muscle use Neck: supple Cardiac/Chest: regular rate, rhythm, No systolic murmur Extremities: No pedal edema, No swelling Abdomen: normal bowel sounds, non-tender, soft, No mass Pelvic Exam: No lopez Skin: No rash, No embolic lesions Neuro/Psych: alert, normal mood/affect, No motor weakness - Time Spent With Patient Time Spent with Patient: greater than 35 minutes (Reviewed pathogenesis of disease , evaluation of source, antibiotic therapy, potential need for surgery with patient and her daughter via phone) Time Spent with Patient: Greater than 35 minutes spent on this patients care, greater than 50% of time spent counseling, educating, and coordinating care regarding the above mentioned plan. ICD10 Worksheet Patient Problems: Problems Problem Status Onset Back pain Acute Dehydration Acute Fever Acute
[2018-05-22] MEDS: POLYETHYLENE GLYCOL 3350 17 GM PKT PO PRN (11:10)
--- NOTE | 2018-05-22 11:12 | HOSPPROG ---
Hospitalist Progress Note Assessment/Plan: # L4-5 diskitis, osteo, epidural abscess with psoas inflammation - cont rocephin per ID - repeat BCx soon - check CT abd/pelvis for source - echo today - ID/nsg involved # hypoNa - SIADH - cont fluid restrict # hypothyroid - cont synthroid # dvt ppx - start LMWH # FCFT # dispo - inpt; needs ongoing monitoring for fever and low back pain Subjective: fall overnight; worse pain in L upper leg; Objective: Vital Signs Temp Pulse Resp BP Pulse Ox 37.0 C 95 18 153/72 H 95 05/22/18 07:56 05/22/18 07:56 05/22/18 07:56 05/22/18 07:56 05/22/18 07:56 Laboratory Results 05/22/18 04:51 05/22/18 05:52 05/21/18 05/22/18 05/23/18 05:59 05:59 05:59 Intake Total 600 Balance 600 PT 14.5 SEC (12.0-15.0) 05/21/18 11:05 INR 1.11 (0.83-1.16) 05/21/18 11:05 high risk - Physical Exam Constitutional: no apparent distress, appears nourished Cardiovascular: regular rate and rhythym, no murmur, rub, or gallop Respiratory: no respiratory distress, no rales or rhonchi, clear to auscultation Gastrointestinal: normoactive bowel sounds, soft, non-tender abdomen, no palpable masses Neurologic: AAOx3, other (improved motor in L hip flexor) ICD10 Worksheet Patient Problems: Problems Problem Status Onset Fever Acute Back pain Acute Dehydration Acute
--- NOTE | 2018-05-22 11:40 | SOAPPROG ---
SOAP Progress Note Assessment/Plan: Assessment: 82 yo female with L4/5 Discitis and epidural abscess with psoas muscle inflammation. On Rocephin Blood cx +for Hemolytic strep Left leg pain somewhat improved with pain meds no strength deficits. Plan: Continue IV Abx per ID recommendations OK for PT and OT as tolerated Continue pain mgmt. 05/22/18 11:41 Subjective: in bedside chair. Feeling ok, left leg feels better with pain meds. Denies new weakness or tingling. Objective: Vital Signs Temp Pulse Resp BP Pulse Ox 37.0 C 95 18 153/72 H 95 05/22/18 07:56 05/22/18 07:56 05/22/18 07:56 05/22/18 07:56 05/22/18 07:56 Laboratory Results 05/22/18 04:51 05/22/18 05:52 05/21/18 05/22/18 05/23/18 05:59 05:59 05:59 Intake Total 600 Balance 600 PT 14.5 SEC (12.0-15.0) 05/21/18 11:05 INR 1.11 (0.83-1.16) 05/21/18 11:05 Neuro: BOLTON, sens +LT throughout ICD10 Worksheet Patient Problems: Problems Problem Status Onset Back pain Acute Dehydration Acute Fever Acute
[2018-05-22] MEDS: ENOXAPARIN 40 MG/0.4 ML SYR SC SCH (11:49)
--- NOTE | 2018-05-22 13:09 | ECHO ---
[email or web address] [address] [address] Main: [phone] Fax: Transthoracic Echocardiogram Name: KARAN MATUTE MR#: [id number] Study Date: 05/22/2018 Study Time: 12:30 PM Date of : 1935 Age: 82 year(s) Height: 154.9 cm (61 in.) Weight: 52.16 kg (115 lb.) BSA: 1.49 m2 Gender: Female Examination: Echo Indication: Strep bacteremia Image Quality: Contrast: Requested by: Kristen Mares BP: 133 mmHg/69 mmHg Heart Rate: Rhythm: Normal sinus rhythm Indication: Strep bacteremia Procedure Staff Code Official: Jordon Benitez RDCS Reading Physician: Freddie Vitale MD Requesting Provider: Conclusions: Normal size left ventricle. No LV hypertrophy. Normal global systolic LV function. EF is 66 %. No regional wall motion abnormality. Grade 1 diastolic dysfunction (abnormal relaxation). The left atrium is normal in size. The right atrium is normal in size. Trivial mitral valve regurgitation. The aortic valve is tri-leaflet. The aortic valve is normal in appearance. The tricuspid valve is normal in appearance and function. The pulmonic valve is normal in appearance and function. No pericardial effusion. Measurements: Chambers Valvular Assessment AV/MV Valvular Assessment TV/PV Normal Normal Normal Name Value Range Name Value Range Name Value Range Ao Suri (MM): 2.5 cm (2.2 cm-3.7 AV Vmax: 1.11 m/s (1 m/s-1.7 PV Vmax: 0.76 m/s (0.6 m/s-0.9 cm) m/s) m/s) IVSd (2D): 0.8 cm (0.6 cm-1.1 AV maxP mmHg ( - ) PV PGmax: 2 mmHg ( - ) cm) LVOT Vmax: 0.80 m/s (0.7 m/s-1.1 LVDd (2D): 3.8 cm (3.9 cm-5.3 m/s) cm) AR (PHT): 508 ms ( - ) LVDs (2D): 2.4 cm (2.1 cm-4 MV E Vmax: 0.48 m/s ( - ) cm) MV A Vmax: 0.74 m/s ( - ) LVPWd (2D): 0.9 cm ( - ) MV E/A: 0.65 ( - ) LVEF (2D): 66 (>=54 %) Patient: KARAN MATUTE Study Date: 05/22/2018 Page 1 of 2 12:30 PM Continued Measurements: Chambers Valvular Assessment AV/MV Name Value Name Value LADs: 2.8 cm MV E' Septal: 0.05 m/s LADs Lon.3 cm MV E/E' Septal: 9.50 LA Area: 12.4 cm2 MV E/E' Lateral: 7.30 LA Volume: 30 ml AR Vmax: 2.47 cm/s LA Volume Index: 20.1 ml/m2 Findings: Left Ventricle: Normal size left ventricle. No LV hypertrophy. Normal global systolic LV function. EF is 66 %. No regional wall motion abnormality. Grade 1 diastolic dysfunction (abnormal relaxation). Right Ventricle: Normal size right ventricle. Normal RV function. Left Atrium: The left atrium is normal in size. Right Atrium: The right atrium is normal in size. Mitral Valve: The mitral valve is normal in appearance and function. Trivial mitral valve regurgitation. Aortic Valve: The aortic valve is tri-leaflet. The aortic valve is normal in appearance. Trivial aortic valve regurgitation. Tricuspid Valve: The tricuspid valve is normal in appearance and function. Pulmonic Valve: The pulmonic valve is normal in appearance and function. Aorta: The aorta is normal. Pericardium: No pericardial effusion. (No Signature Object) Patient: KARAN MATUTE Study Date: 05/22/2018 Page 2 of 2 12:30 PM [id number]
[2018-05-22] MEDS ORDERED: IOPAMIDOL (ISOVUE 370) 100 ML BTL IV ONE (14:41)
[2018-05-22] MEDS: LIDOCAINE 4%/MENTHOL 1% PATCH TD SCH (15:44)
[2018-05-22] MEDS: PATCH REMOVAL 1 EA PATCH TD SCH (19:53)
[2018-05-23] MEDS: ACETAMINOPHEN 500 MG TAB PO SCH ×3 (02:21→18:26)
[2018-05-23] MEDS: oxyCODONE IR 5 MG TAB PO PRN ×4 (02:25→20:52)
[2018-05-23] MEDS: LEVOTHYROXINE 50 MCG TAB PO SCH (05:11)
[2018-05-23 06:41] LABS: PLATELET COUNT 282 10^3/uL (150-400)
[2018-05-23] MEDS: LIDOCAINE 4%/MENTHOL 1% PATCH TD SCH (08:51)
[2018-05-23] MEDS: ENOXAPARIN 40 MG/0.4 ML SYR SC SCH (08:51)
--- NOTE | 2018-05-23 09:32 | SOAPPROG ---
SOAP Progress Note Assessment/Plan: Assessment: 82 yo female with L4/5 Discitis and epidural abscess with psoas muscle inflammation. On Rocephin Blood cx +for Hemolytic strep ongoing left leg pain and left low back pain 5/10 no strength deficits. Plan: Continue IV Abx per ID recommendations OK for PT and OT as tolerated Continue pain mgmt. We will sign off. Recommend follow up with Dr. Patel upon completion of antibiotics 05/23/18 09:32 Subjective: lying in bed, comfortable appearing. She reports 5/10 low back and left leg pain. Objective: Vital Signs Temp Pulse Resp BP Pulse Ox 36.9 C 80 16 151/66 H 97 05/23/18 08:00 05/23/18 08:00 05/23/18 08:00 05/23/18 08:00 05/23/18 08:00 Laboratory Results 05/23/18 05:14 05/23/18 05:14 05/22/18 05/23/18 05/24/18 05:59 05:59 05:59 Intake Total 600 700 Output Total 200 Balance 600 500 PT 14.5 SEC (12.0-15.0) 05/21/18 11:05 INR 1.11 (0.83-1.16) 05/21/18 11:05 Neuro: BOLTON, sens +LT 5/5 bilat LE throughout follows comands ICD10 Worksheet Patient Problems: Problems Problem Status Onset Back pain Acute Dehydration Acute Fever Acute
--- NOTE | 2018-05-23 10:07 | HOSPPROG ---
Hospitalist Progress Note Assessment/Plan: # L4-5 diskitis, osteo, epidural abscess with psoas inflammation - fever noted last night - cont rocephin per ID - repeat BCx today # hypoNa - SIADH - cont fluid restrict # hypothyroid - cont synthroid # FCFT # dispo - inpt; needs ongoing monitoring for fever and low back pain # dvt ppx - lovenox Subjective: cc epidural abscess; fever last night; still with ongoing back pain radiating down L left; no numbness in L leg; eating well, feels fatigued Objective: Vital Signs Temp Pulse Resp BP Pulse Ox 36.9 C 80 16 151/66 H 97 05/23/18 08:00 05/23/18 08:00 05/23/18 08:00 05/23/18 08:00 05/23/18 08:00 Laboratory Results 05/23/18 05:14 05/23/18 05:14 05/22/18 05/23/18 05/24/18 05:59 05:59 05:59 Intake Total 600 700 Output Total 200 Balance 600 500 PT 14.5 SEC (12.0-15.0) 05/21/18 11:05 INR 1.11 (0.83-1.16) 05/21/18 11:05 ct abd reviewed - Physical Exam Constitutional: uncomfortable Cardiovascular: regular rate and rhythym, no murmur, rub, or gallop Respiratory: no respiratory distress, no rales or rhonchi, clear to auscultation Gastrointestinal: normoactive bowel sounds, soft, non-tender abdomen, no palpable masses Neurologic: AAOx3, other (L leg motor slightly decreaed in hip flexor; senstion to light tough intact L leg) ICD10 Worksheet Patient Problems: Problems Problem Status Onset Fever Acute Back pain Acute Dehydration Acute
--- NOTE | 2018-05-23 11:22 | PCMIDPN ---
Assessment/Plan: # Streptococcal oralis bacteremia and L4-L5 osteo diskitis, L Psoas small abscess and early epidural abscess. TTE without concerning finding. CT abd/ pelvis did not reveal a source. Slow to resolve leukocytosis and febrile overnight. Back pain/left leg pain minimal improvement. --in light of epidural component will increase ceftriaxone to q12h, but do not think this is the etiology of ongoing fever and leukocytosis --if fever and/or leukocytosis persists consider repeat MRI quickly --dental eval as outpatient --discussed the need for potential surgical intervention to manage infection. Meds Ceftriaxone 2gm IV daily #3 Microbiology 05/23 blood cultures (2 sets): Pending 05/21 blood cultures (2 sets): Streptococcus oralis BARBARA to ceftriaxone 0.125 Care coordinated with hospitalist & neurosurg Subjective: Persistent pain left quadriceps and lateral calf No diarrhea, rash. Back pain has been controlled with 1 oxycodone Objective: T-MAX 05/23/18 02:30 Temperature (C) 39.1 C H Temp Pulse Resp BP Pulse Ox 36.9 C 80 16 151/66 H 97 05/23/18 08:00 05/23/18 08:00 05/23/18 08:00 05/23/18 08:00 05/23/18 08:00 Laboratory Results 05/23/18 05:14 05/23/18 05:14 05/22/18 05/23/18 05/24/18 05:59 05:59 05:59 Intake Total 600 700 Output Total 200 Balance 600 500 ESR 10 MM/HR (0-30) 05/21/18 16:00 C-Reactive Protein 191.7 mg/L (<10.0) H 05/21/18 04:46 - Physical Exam General Appearance: alert, no apparent distress, thin, non-toxic EENT: other (Fair dentition), No thrush Respiratory: lungs clear, No accessory muscle use Neck: supple Cardiac/Chest: regular rate, rhythm, No systolic murmur Extremities: No pedal edema Neuro/Psych: alert, normal mood/affect, other (Left flexion of the hip and extension at the knee a bit weak but difficult to assess because illicits pain with movement) - Time Spent With Patient Time Spent with Patient: greater than 35 minutes (Reviewed plan of care with patient, son and nurse as described in plan above) Time Spent with Patient: Greater than 35 minutes spent on this patients care, greater than 50% of time spent counseling, educating, and coordinating care regarding the above mentioned plan. ICD10 Worksheet Patient Problems: Problems Problem Status Onset Back pain Acute Dehydration Acute Fever Acute
[2018-05-23] MEDS: PATCH REMOVAL 1 EA PATCH TD SCH (20:57)
[2018-05-23] MEDS: POLYETHYLENE GLYCOL 3350 17 GM PKT PO PRN (21:09)
[2018-05-24] MEDS: oxyCODONE IR 5 MG TAB PO PRN ×5 (01:13→23:24)
[2018-05-24] MEDS: ACETAMINOPHEN 500 MG TAB PO SCH ×3 (02:30→18:51)
[2018-05-24] MEDS: LEVOTHYROXINE 50 MCG TAB PO SCH (05:12)
[2018-05-24 05:26] LABS: PLATELET COUNT 292 10^3/uL (150-400)
[2018-05-24] MEDS: LIDOCAINE 4%/MENTHOL 1% PATCH TD SCH (08:17)
[2018-05-24] MEDS: ENOXAPARIN 40 MG/0.4 ML SYR SC SCH (08:19)
[2018-05-24] MEDS: SODIUM CHLORIDE 1,000 MG TAB PO SCH ×2 (08:19→18:15)
--- NOTE | 2018-05-24 09:21 | HOSPPROG ---
Hospitalist Progress Note Assessment/Plan: DIAGNOSES: # L4-5 diskitis, osteo, epidural abscess with psoas myositis - fever now resolved and WBC better, however pain in her left leg is increasing today (pain does not sound necessarily neuropathic by her description ) - repeat BCx from 05/23 pending - cont rocephin per ID - will discuss with ID today, question if we need to reimage her so S with her pain getting worse # hypoNa - SIADH - no improvement in sodium yet - cont fluid restrict, will add some sodium supplements as well at the moment # hypothyroid - cont synthroid # FCFT # dispo - inpt; needs ongoing monitoring for fever and low back pain # dvt ppx - lovenox SUBJECTIVE: Today she notices worsening pain in her left leg and notices that the pain has progressed distal to the knee area. She describes it as a bed ache, without any paresthesia type symptoms. She has trouble telling me if it is worse with movement or not OBJECTIVE Vitals reviewed: No fever greater than 24 hr, otherwise stable Pre Owned Sales Consultant, my review: Exam: alert oriented, looks uncomfortable and mildly anxious due to pain She has inability to lift her left foot more than a couple inches off the bed, it seems mostly due to pain hard to tell if there is truly weakness or not, sensation is intact skin warm dry color ok resps not labored lungs clear BSs heart regular abd soft nondistended nontender, bowel sounds present limbs warm, no edema iv site ok Lab data: Sodium still low at 125 White count down to 12,000 Anemia stable I reviewed the images from her MRI 05/[address] of 05/22. The diskitis and minimal epidural abscess are apparent, as well as inflammatory psoas changes on the CT scan. No definite abscess in the psoas on the CT or MRI on my reading Objective: Vital Signs Temp Pulse Resp BP Pulse Ox 37.2 C 85 16 145/65 H 96 05/24/18 07:58 05/24/18 07:58 05/24/18 07:58 05/24/18 07:58 05/24/18 07:58 Laboratory Results 05/24/18 04:30 05/24/18 04:36 05/23/18 05/24/18 05/25/18 06:59 06:59 06:59 Intake Total 700 900 Output Total 200 Balance 500 900 PT 14.5 SEC (12.0-15.0) 05/21/18 11:05 INR 1.11 (0.83-1.16) 05/21/18 11:05 - Time Spent With Patient Time Spent with Patient: greater than 35 minutes Time Spent with Patient: Greater than 35 minutes spent on this patients care, greater than 50% of time spent counseling, educating, and coordinating care regarding the above mentioned plan. ICD10 Worksheet Patient Problems: Problems Problem Status Onset Back pain Acute Dehydration Acute Fever Acute
--- NOTE | 2018-05-24 12:07 | ASMTCMCOM ---
CM Note CM Note Notes: Patient continues to have leg and back pain. ID and NS following. Therapies are working w her daily; current recommendation is SNF. I spoke with patient and her son about SNF choice - [facility]. I sent a referral but let them know that bed availabilty is unlikely. Patient's son and daughter both live in [place], so she is amenable to facilities there and/or in [facility]. Family to speak about options and let Case Management know. We will follow. Current CM Discharge plan: SNF, location TBD Date Signed: 05/24/2018 12:06 PM Electronically Signed By:Ijeoma Crowley RN
--- NOTE | 2018-05-24 16:09 | PCMIDPN ---
Assessment/Plan: Assessment: 82-year-old female with Streptococcus oralis/mitis bloodstream infection with secondary focus of L4/L5 manifesting as osteo diskitis with a small epidural abscess, psoas muscle inflammation that may well be a phlegmon that will organize into an abscess over time. Repeat blood cultures remain negative after more than 24 hr of incubation, suspected these will remain negative. No clear source with negative abdominal CT and no secondary seeding of cardiac valves by TTE. Afebrile for more than 24 hr, anticipate PICC line placement tomorrow. 1. Streptococcus oralis/mitis bloodstream infection without defined source 2. 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 3. Small epidural abscess secondary to 1. 4. Neutrophilic leukocytosis, improved 5. Age-related mild cognitive decline Plan: 1. Continue ceftriaxone 2 g q.12 hours 2. PICC placement 05/25/18 if blood culture remains negative 3. Anticipate 6 weeks of IV antibiotics, tentative stop date is 07/04/2018 4. Discussed with patient and her son potential antibiotic side effects of ceftriaxone, including antibiotic associated diarrhea, rash, C diff colitis 05/24/18 16:03 Subjective: No fever or chills overnight. No rash or diarrhea. Eating meals without nausea or vomiting. Back pain overall improved, unsure if pain medications effect or true improvement in the pain. Objective: Vital Signs Temp Pulse Resp BP Pulse Ox 37.3 C 81 16 123/83 H 98 05/24/18 15:32 05/24/18 15:32 05/24/18 15:32 05/24/18 15:32 05/24/18 15:32 Laboratory Results 05/24/18 04:30 05/24/18 04:36 05/23/18 05/24/18 05/25/18 05:59 05:59 05:59 Intake Total 700 900 540 Output Total 200 Balance 500 900 540 ESR 10 MM/HR (0-30) 05/21/18 16:00 C-Reactive Protein 191.7 mg/L (<10.0) H 05/21/18 04:46 Microbiology 05/21/18 00:27 Blood Blood Panel (PCR) - Final Streptococcus 05/23/18 05:21 Blood Blood Culture - Preliminary 05/23/18 05:14 Blood Blood Culture - Preliminary 05/21/18 00:27 Blood Blood Culture - Preliminary 05/21/18 00:27 Blood Streptococcus Mitis/Oralis 05/21/18 00:14 Blood Blood Culture - Preliminary Streptococcus Mitis/Oralis Laboratory Tests 05/23/18 05/24/18 05:14 04:30 WBC 17.47 H 12.50 H Absolute Seg Neuts 15.53 H 10.25 H Absolute Band Neuts 0.52 0.00 Absolute Lymphocytes 0.52 L 0.88 L - Physical Exam General Appearance: alert, no apparent distress, thin, non-toxic EENT: normal ENT inspection Respiratory: lungs clear, normal breath sounds, No crackles, No wheezing Neck: supple, normal inspection Cardiac/Chest: regular rate, rhythm Skin: normal color, No rash, No erythema Neuro/Psych: alert, normal mood/affect - Time Spent With Patient Time Spent with Patient: greater than 35 minutes (More than 35 min spent at the bedside with patient and patient's son discussing microbiology of streptococcal bloodstream infection, secondary seeding including osteomyelitis, long-term antibiotic effects and expected outcomes.) Time Spent with Patient: Greater than 35 minutes spent on this patients care, greater than 50% of time spent counseling, educating, and coordinating care regarding the above mentioned plan. ICD10 Worksheet Patient Problems: Problems Problem Status Onset Back pain Acute Dehydration Acute Fever Acute
--- NOTE | 2018-05-24 16:19 | PDIAF ---
- Diagnosis Diagnosis: Streptococcus oralis/mitis bloodstream infection with L4/L5 osteodiskitis Code Status: Full Code - Medication Management Long-Term Antibiotics: Ceftriaxone 2 g q.12 hours Washing Machine Installer Antibiotic Stop Date: 07/04/18 Discharge Medications: electronically signed and located in the Home Medication List. PICC Care - Routine: Yes - Orders Isolation Type: None - Labs/Radiology CBC w/diff Date: 05/31/18 (Weekly) CMP Date: 05/31/18 (Weekly) CRP Date: 05/31/18 (Weekly) - Follow Up Care Current Providers and Referrals: Antonio Long MD [Primary Care Provider] - As per Instructions Anthony Nixon MD [Medical Doctor] -
--- NOTE | 2018-05-24 18:24 | PDIAF ---
- Diagnosis Diagnosis: Streptococcus oralis/mitis bloodstream infection with L4/L5 osteodiskitis Code Status: Full Code - Medication Management Half-Way Antibiotics: Ceftriaxone 2 g q.12 hours Construction Analyst Antibiotic Stop Date: 07/04/18 Discharge Medications: electronically signed and located in the Home Medication List. PICC Care - Routine: Yes - Orders Isolation Type: None - Labs/Radiology CBC w/diff Date: 05/31/18 (Weekly) CMP Date: 05/31/18 (Weekly) CRP Date: 05/31/18 (Weekly) Call or Fax Lab and Imaging Results to: Dr. Nixon, - Follow Up Care Current Providers and Referrals: Anthony Nixon MD [Medical Doctor] - Antonio Long MD [Primary Care Provider] - As per Instructions
[2018-05-24] MEDS: PATCH REMOVAL 1 EA PATCH TD SCH (21:25)
[2018-05-24] MEDS ORDERED: KETOROLAC 15 MG/1 ML SDV IVP SCH ×3 (21:30→22:00)
[2018-05-24] MEDS: POLYETHYLENE GLYCOL 3350 17 GM PKT PO PRN (21:52)
[2018-05-25] MEDS: ACETAMINOPHEN 500 MG TAB PO SCH ×2 (03:36→13:14)
[2018-05-25] MEDS: KETOROLAC 15 MG/1 ML SDV IVP SCH ×2 (05:29→13:14)
[2018-05-25] MEDS: LEVOTHYROXINE 50 MCG TAB PO SCH (05:30)
[2018-05-25] MEDS: LIDOCAINE 4%/MENTHOL 1% PATCH TD SCH (09:43)
[2018-05-25] MEDS: SODIUM CHLORIDE 1,000 MG TAB PO SCH (09:45)
[2018-05-25] MEDS: ENOXAPARIN 40 MG/0.4 ML SYR SC SCH (09:46)
--- NOTE | 2018-05-25 10:19 | ASMTCMCOM ---
CM Note CM Note Notes: [facility] cannot accept pts insurance. CM notified pts conchita Fausto over the phone. Fausto would like a referral made to [facility]. Referral sent. CM notified pt that a referral is being sent to [facility]. CM to follow. Date Signed: 05/25/2018 10:18 AM Electronically Signed By:CATHI Ward
[2018-05-25] MEDS ORDERED: ALTEPLASE 2 MG VIAL IVP PRN (11:52)
--- NOTE | 2018-05-25 13:43 | PDIAF ---
- Diagnosis Diagnosis: Streptococcus oralis/mitis bloodstream infection with L4/L5 osteodiskitis Code Status: Full Code - Medication Management Mcfp Antibiotics: Ceftriaxone 2 g q.12 hours Formulation Chemist Antibiotic Stop Date: 07/04/18 Discharge Medications: electronically signed and located in the Home Medication List. PICC Care - Routine: Yes - Orders Services needed: Registered Nurse, Certified Project Associate, Master Deburrer , Physical Therapy, Occupational Therapy Isolation Type: None Diet Recommendation: no restrictions on diet Diet Texture: Regular Texture Diet Activity/Weight Bearing Restrictions: as tolerated. fall risk precautions - Labs/Radiology CBC w/diff Date: 05/31/18 (Weekly) CMP Date: 05/31/18 (Weekly) CRP Date: 05/31/18 (Weekly) Call or Fax Lab and Imaging Results to: Dr. Nixon, - Follow Up Care Current Providers and Referrals: Anthony Nixon MD [Medical Doctor] - Antonio Long MD [Primary Care Provider] - As per Instructions
--- NOTE | 2018-05-25 13:52 | PDDCSUM ---
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 Matheus hebert Neurosurgery PROCEDURES: PICC catheter placement MRI lumbar spine CT scan abdomen pelvis HOSPITAL COURSE SUMMARY: This patient has had onset of back pain recently has had worsening back pain comes back in the hospital with this and is found to have on MRI scanning L4-5 diskitis with mild osteomyelitis and small epidural abscess. There is also some myositis of the left ileus OS. Cultures have grown strep mitis, and she has been started on IV antibiotics. At this point after several days of antibiotics her fevers have resolved, white blood cell count better and she is having some decrease in pain and increased mobility. She has had no neuropathic symptoms or examination findings here. The plan for her is to have her undergo a total of at least 4 weeks and up to 6 weeks of antibiotics to be determined at [facility] follow-up. Her antibiotic was Rocephin 2 g daily. A PICC catheter is in place and she will go to [facility] for physical therapy and ongoing IV therapy at this time. The patient has chronic SIADH and hyponatremia. She has that ongoing at this time and her sugar sodiums have been 125-126. Her usual range is between 128 and the low 130s. She will need ongoing oral fluid restriction and some sodium supplements as she moves forward. She will need follow up sodium levels PENDING TESTS: Final reading of blood cultures from May 23 still pending, no growth as of this date MEDICATION CHANGES: Steroids are stopped IV Rocephin 2 g daily for total of 4 weeks to 6 weeks with follow-up in Infect[facility] Disease Clinic ongoing FOLLOW-UP: She is to be transferred to [facility] at this time for ongoing IV antibiotic therapy and physical therapy Follow up with Dr. Nixon in Infect[facility] Disease Clinic per his instruction At the nursing facility she will need ongoing oral fluid restrictions and will need at least weekly sodium level to make sure that is drifting down. Greater than 35 minutes bedside and care coordination time today
--- NOTE | 2018-05-25 13:53 | PDIAF ---
- Diagnosis Diagnosis: Streptococcus oralis/mitis bloodstream infection with L4/L5 osteodiskitis Code Status: Full Code - Medication Management Skilled Nursing Antibiotics: Ceftriaxone 2 g q.12 hours Color Laboratory Technician Antibiotic Stop Date: 07/04/18 Discharge Medications: electronically signed and located in the Home Medication List. PICC Care - Routine: Yes - Orders Services needed: Registered Nurse, Certified Project Geophysicist, Master Jalousie Installer , Physical Therapy, Occupational Therapy Isolation Type: None Diet Recommendation: fluid restriction (use comment for amount) (1500 mL per 24 hr oral fluid restriction) Diet Texture: Regular Texture Diet Weigh Patient: weekly Activity/Weight Bearing Restrictions: as tolerated. fall risk precautions Additional Instructions: Patient should be on strict 1500 mL per 24 hr oral fluid restriction due to SIADH which is chronic for her - Labs/Radiology BMP Date: 05/31/18 (Weekly after that) CBC w/diff Date: 05/31/18 (Weekly) CMP Date: 05/31/18 (Weekly) CRP Date: 05/31/18 (Weekly) Call or Fax Lab and Imaging Results to: Dr. Nixon, - Follow Up Care Current Providers and Referrals: Anthony Nixon MD [Medical Doctor] - 06/02/18 11:00 am Antonio Long MD [Primary Care Provider] - As per Instructions
--- NOTE | 2018-05-25 14:22 | PCMIDPN ---
Assessment/Plan: Assessment/Plan: * Streptococcus mitis/oralis bacteremia associated with L4-5 diskitis/ osteomyelitis/small epidural abscess with adjacent inflammatory change in iliopsoas: Clinically improved with ceftriaxone. Repeat blood culture show clearing of bacteremia. Back pain has improved. Anticipate 6-8 week course of ceftriaxone which is currently dosed at Q 12 based on epidural involvement. Side effects of ceftriaxone including allergic reactions, skin rash, drug fever , biliary sludging, and potential for changes in blood count/liver tests/kidney test discussed with patient today. Risks of PICC line including potential for PICC associated DVT or infection discussed with patient and son. Have arranged for follow-up with Dr. Nixon in our office next week. Anticipate weekly CBC and CMP while on therapy. 05/25/18 14:19 Subjective: Overall patient feels better. 1 large loose stool yesterday p.m. After receiving MiraLax. No ongoing diarrhea. No skin rash. Back pain decreasing. Objective: Vital Signs Temp Pulse Resp BP Pulse Ox 36.9 C 75 16 166/70 H 98 05/25/18 12:00 05/25/18 12:00 05/25/18 12:00 05/25/18 12:00 05/25/18 12:00 Laboratory Results 05/24/18 04:30 05/24/18 04:36 05/24/18 05/25/18 05/26/18 05:59 05:59 05:59 Intake Total 900 840 Balance 900 840 ESR 10 MM/HR (0-30) 05/21/18 16:00 C-Reactive Protein 191.7 mg/L (<10.0) H 05/21/18 04:46 Ceftriaxone 2 g IV q.12 hours Blood cultures 05/23/2018 no growth - Physical Exam General Appearance: alert, no apparent distress EENT: No scleral icterus, No thrush, No conjunctival petechiae Respiratory: lungs clear, No respiratory distress Cardiac/Chest: regular rate, rhythm, No systolic murmur Abdomen: non-tender, No distended Back: No spine tenderness Skin: No embolic lesions Neuro/Psych: No motor weakness - Time Spent With Patient Time Spent with Patient: greater than 35 minutes Time Spent with Patient: Greater than 35 minutes spent on this patients care, greater than 50% of time spent counseling, educating, and coordinating care regarding the above mentioned plan. ICD10 Worksheet Patient Problems: Problems Problem Status Onset Back pain Acute Dehydration Acute Fever Acute
[2018-05-25 15:42] VITALS: BP 129/66
--- NOTE | 2018-05-25 15:49 | ASMTLACE ---
LACE Length of stay for Answers: 3 days current admission Acuity / Level of Answers: Yes Care: Did the patient have an inpatient admission? Comorbidities - select Answers: Any tumor (including all that apply lymphoma or leukemia) Diabetes (uncontrolled or controlled) Other Notes: Hypothyroid # of Emergency department Answers: 1-2 visits in the last 6 months Social determinants Answers: Mental health diagnosis (anxiety, depression, pers onality disorders, etc.) Score: 14 Date Signed: 05/25/2018 03:49 PM Electronically Signed By:CATHI Ward
--- NOTE | 2018-05-25 15:49 | ASDISCHSUM ---
Discharge Information Plan Status:SNF Medically Cleared to Leave:05/24/2018 Discharge Date:05/24/2018 CM D/C Disposition: ADT D/C Disposition:Long Term Facility Projected Discharge Date:05/25/2018 11:00 AM Transportation at D/C: Discharge Delay Reason: Follow-Up Date:05/25/2018 11:00 AM Discharge Slot: Final Diagnosis: Placement Information Referral Type:*Care Home/SNF Referral ID:[id number] Provider Name:[facility] Address 1:[address] Address 2: City:[place] Selection Factors: State:[place] Patient Contact Information Contact Name:ELDER Relationship: Address:[address] City:[place] Alternate Phone: State/Zip Code:[place] [address] Email: Financial Information Financial Class:Medicare Advantage Plans Primary Plan Desc:[facility] ADVANTAGE PLANS Primary Plan Number:[id number] Secondary Plan Desc: Secondary Plan Number: Assessment Information [facility] CM Progress Note CM Note CM Note Notes: Pt admitted for lower back pain, and MRI revealed that she had a small epidural abscess. She will have it aspirated today, PT/OT to [facility] w/f. Pt lives at home with her and is normally independent. DC Plan: TBD Date Signed: 05/21/2018 12:54 PM Electronically Signed By:Jeanne Guy RN [facility] CM Progress Note CM Note CM Note Notes: Patient continues to have leg and back pain. ID and NS following. Therapies are working w her daily; current recommendation is SNF. I spoke with patient and her son about SNF choice - [facility]. I sent a referral but let them know that bed availabilty is unlikely. Patient's son and daughter both live in [place], so she is amenable to facilities there and/or in [facility]. Family to speak about options and let Case Management know. We will follow. Current CM Discharge plan: SNF, location TBD Date Signed: 05/24/2018 12:06 PM Electronically Signed By:Ijeoma Crowley RN [facility] CM Progress Note CM Note CM Note Notes: [facility] cannot accept pts insurance. CM notified pts conchita Lambert over the phone. Fausto would like a referral made to [facility]. Referral sent. CM notified pt that a referral is being sent to [facility]. CM to follow. Date Signed: 05/25/2018 10:18 AM Electronically Signed By:CATHI Ward Case Management Discharge Plan Note Case Management Discharge Discharge Order Complete? Answers: Yes Patient to Obtain Answers: Other Notes: [facility] Medications Transportation Arranged Answers: Other Notes: [facility] W/C transport Transport will Pick (Date 05/25/2018 04:45 PM & Time) EMTALA Complete Answers: No Case Management Transport Answers: No Form Complete Faxed Final Orders Answers: Yes Agency/Facility Transfer Answers: Yes Report Printed & Faxed to Receiving Agency Family Notified Answers: Yes Discharge Comments Notes: Pts case discussed w/ Dr. Kruse. Pt is being d/c'd today to [facility]. DC orders sent. SHIVA Meyer will call to give report. CM notified pt and family of the d/c time. CM available for changes. Plan: [facility] Date Signed: 05/25/2018 03:48 PM Electronically Signed By:CATHI Ward Intervention Information Intervention Type:*IM-Signed Date of Service:05/25/2018 03:08 PM Patient Type:Inpatient Staff Member:Kyung Giraldo Hours: Discipline: Severity: Comment:
== END 2018-05-25 16:42 | DRG 41 ==
LOC: EDUNIT# → F3E 05-21 00:51 → OBSVTOIN 05-21 08:04
PROVIDERS: ADMIT Student in an Organized Health Care Education/Training Program; ATTEND Student in an Organized Health Care Education/Training Program
PROC: 02HV3DZ Insertion of Intraluminal Device into Superior Vena Cava, Percutaneous Approach (ICD-10-PCS; principal; 2018-05-25)
DX: G06.1 Intraspinal abscess and granuloma (principal); M46.46 Discitis, unspecified, lumbar region; M60.08 Infective myositis, other site; M86.9 Osteomyelitis, unspecified; E22.2 Syndrome of inappropriate secretion of antidiuretic hormone; B95.4 Other streptococcus as the cause of diseases classified elsewhere; E03.9 Hypothyroidism, unspecified; Z87.891 Personal history of nicotine dependence; Z85.3 Personal history of malignant neoplasm of breast; G31.84 Mild cognitive impairment of uncertain or unknown etiology
CPT/HCPCS: 96374; 97116-GP; 97161-GP; 97165-GO; 97530-GP; 97535-GO; A9585; C1751; J0290; J0696; J1650; J1885; J2250; J2310; J3010; Q9967

== ENCOUNTER → 2018-06-29 | Outpatient (CLI) | payer OTHER | LOC: FIMAGING 15:03 | PROVIDERS: ATTEND Internal Medicine Infectious Disease | DX: M86.9 Osteomyelitis, unspecified (principal); M53.86 Other specified dorsopathies, lumbar region | CPT/HCPCS: 72158; A9585 ==

== ENCOUNTER → 2018-08-17 | Outpatient (CLI) | payer OTHER | LOC: FIMAGING 14:49 | PROVIDERS: ATTEND Internal Medicine | DX: M25.552 Pain in left hip (principal); M46.46 Discitis, unspecified, lumbar region | CPT/HCPCS: 72158; 73721; A9585 ==

== ENCOUNTER → 2018-10-14 | Outpatient (CLI) | payer OTHER | LOC: FIMAGING 11:04 ==